=== PATIENT | male | born 1950 | race Caucasian/White ===

== ENCOUNTER → 2017-12-16 | Outpatient (CLI) | payer MEDICARE, OTHER ==
[~2017-12-16] MED LIST: ALL300 PO; ALLO-119 PO; ALLOPURINOL PO; AMOX-559 PO; ATOR10TA24 PO; ATOR40TA69 PO; BACL-1 PO; BENZ200C15 PO; CHOL10005 PO; DIPH0.5D12 IM; FLOMAX PO; FLUT16SP19 NS; GLUC-198 PO; GUAI120L3 PO; KET10 PO; MAXALT PO; MOMR NS; ONDA4TAB PO; PER PO; PNEU0.5D3 IM; PRED20TA6 PO; RIZA10TA PO; SAW450CA3 PO; VIT1CAPS9 PO
--- NOTE | 2017-12-16 10:14 | RADIOLOGY IMAGING REPORT ---
FACILITY: [facility] - [place] PATIENT NAME: Jose Vides : 1950 MR: [id number] V: [id number] EXAM DATE: ORDERING PHYSICIAN: SHIRAZ NOVOA TECHNOLOGIST: Location: [facility] [place] Patient: Jose Vides : 1950 Visit/Account:[id number] Date of Sevice: 12/16/2017 AORTA INDICATION: Aortic aneurysm screening, history of tobacco use. COMPARISON: None available FINDINGS: The suprarenal aorta measures 2.4 x 2.6 cm. The superior infrarenal aorta measures 2 x 2.1 cm. The mid infrarenal aorta is normal in size to 1.6 cm. The distal aorta measures 1.6 x 1.6 cm. The right and left common iliac arteries both measure 1 cm. IMPRESSION: Normal abdominal aorta without aneurysm. Report Dictated By: Jaison Zavala MD at 12/16/2017 9:52 AM Report E-Signed By: Jaison Zavala MD at 12/16/2017 10:09 AM WSN:[email or web address]
== END ==
LOC: US 07:16
PROVIDERS: ATTEND Emergency Medicine
DX: Z87.891 Personal history of nicotine dependence (principal)
CPT/HCPCS: 93979

== ENCOUNTER → 2018-01-06 | Outpatient (CLI) | payer MEDICARE, OTHER ==
[2018-01-06 08:00] LABS: PLATELET COUNT, AUTOMATED 214 K/uL (150-450)
[2018-01-06 08:48] LABS: LDL CHOLESTEROL 63 mg/dl
== END ==
LOC: LAB 07:27
PROVIDERS: ATTEND Emergency Medicine
DX: E78.5 Hyperlipidemia, unspecified (principal); E87.5 Hyperkalemia; G62.9 Polyneuropathy, unspecified
CPT/HCPCS: 36415; 82310; 82374; 82435; 82465; 82565; 82607; 82947; 83718; 84132; 84295; 84478; 84520; 85025

== ENCOUNTER → 2018-08-14 | Outpatient (CLI) | payer MEDICARE, OTHER ==
[~2018-08-14] MED LIST changes: -DIPH0.5D12 IM; +DIPH0.5S2 IM; +FLU180SY11 IM; +GLUC1TAB78; +MAGN125C; +VIT1CAPS34 PO; +[UNRECOGNIZED DRUG - OTHER] PO
[2018-08-14 08:02] LABS: PLATELET COUNT, AUTOMATED 210 K/uL (150-450)
[2018-08-14 08:20] LABS: LDL CHOLESTEROL 78 mg/dl
== END ==
LOC: LAB 07:50
PROVIDERS: ATTEND Emergency Medicine
DX: Z12.5 Encounter for screening for malignant neoplasm of prostate (principal); G47.33 Obstructive sleep apnea (adult) (pediatric); E78.5 Hyperlipidemia, unspecified
CPT/HCPCS: 36415; 85025; G0103; 82040; 82247; 82310; 82374; 82435; 82465; 82565; 82947; 83718; 84075; 84132; 84153; 84155; 84295; 84450; 84460; 84478; 84520

== ENCOUNTER → 2018-08-19 | Outpatient (CLI) | payer MEDICARE, OTHER | LOC: LAB 09:10 | PROVIDERS: ATTEND Emergency Medicine | DX: R94.5 Abnormal results of liver function studies (principal); Z72.9 Problem related to lifestyle, unspecified | CPT/HCPCS: 36415; 86706; 86707; 87340; 87350; G0472; 86803 ==

== ENCOUNTER → 2018-08-25 | Outpatient (CLI) | payer MEDICARE, OTHER ==
--- NOTE | 2018-08-25 13:48 | RADIOLOGY IMAGING REPORT ---
FACILITY: [facility] PATIENT NAME: Jose Vides : 1950 MR: [id number] V: [id number] EXAM DATE: ORDERING PHYSICIAN: SHIRAZ NOVOA TECHNOLOGIST: Location: [facility] Patient: Jose Vides : 1950 Visit/Account:[id number] Date of Sevice: 08/25/2018 LIVER HISTORY: Elevated liver US. COMPARISON: None. FINDINGS: Gallbladder: Surgically absent Liver: Negative. Common duct: Normal, 5.4 mm diameter. Pancreas: Partially obscured by bowel, visualized aspects unremarkable. Right kidney: Right kidney measures 9 cm in length. There is an 8 mm echogenic round focus in the up per pole and a 7 mm echogenic focus in the mid to lower pole the right kidney which appear to represe nt calcifications Upper abdominal aorta and IVC: Patent. Ascites: None visualized. IMPRESSION: Two calcifications in the right kidney as described. No evidence of hydronephrosis Postsurgical changes from a cholecystectomy The liver appears unremarkable Report Dictated By: Becca Spicer MD at 08/25/2018 1:41 PM Report E-Signed By: Becca Spicer MD at 08/25/2018 1:44 PM WSN:[email or web address]
== END ==
LOC: US 01:09
PROVIDERS: ATTEND Emergency Medicine
DX: R74.8 Abnormal levels of other serum enzymes (principal); Z90.49 Acquired absence of other specified parts of digestive tract
CPT/HCPCS: 76705

== ENCOUNTER → 2018-09-05 | Outpatient (CLI) | payer MEDICARE, OTHER ==
[~2018-09-05] MED LIST changes: +UBID50TA3 PO
[2018-09-05 08:36] LABS: PLATELET COUNT, AUTOMATED 213 K/uL (150-450)
== END ==
LOC: LAB 08:09
PROVIDERS: ATTEND Surgery
DX: G47.33 Obstructive sleep apnea (adult) (pediatric) (principal)
CPT/HCPCS: 36415; 85025

== ENCOUNTER → 2018-09-12 | Day surgery (SDC) | payer MEDICARE, OTHER ==
[~2018-09-12] VITALS: Ht 172.7 cm; Wt 78.9 kg
[2018-09-12] VITALS (7 sets, daily range): BP systolic 105–140; BP diastolic 65–86
[~2018-09-12] MED LIST changes: +LIDOCAINE MPF 1% 5 ML VIAL ONE; +LIDOCAINE/SOD BICARB 8.4% SYR ID ONE; +NORMOSOL R SOLN(*) 1000 ML BAG 1,000 ML IV PRN; +PROPOFOL EMUL(*) 10MG/ML 20 ML 60 ML ONE
--- NOTE | 2018-09-12 11:44 | Short(Outpt) Discharge Summary ---
Discharge Summary Reason for Hosp/Final Diag: (1) Encounter for screening colonoscopy Hospital Course & Plan: pt presented for screening colonoscopy. he tolerated the procedure well and will be discharged home when criteria met. Discharge Instructions Home Meds Active Scripts Allopurinol (ZYLOPRIM) 300 Mg Tablet, 300 MG PO QAM, #90 TAB 3 Refills Prov:SHIRAZ NOVOA MD 08/19/18 Atorvastatin Calcium (ATORVASTATIN CALCIUM) 40 Mg Tablet, 1 TAB PO QDAY, #90 TAB 3 Refills Prov:SHIRAZ NOVOA MD 08/19/18 Rizatriptan Benzoate (MAXALT) 10 Mg Tablet, 1 TAB PO PRN PRN for MIGRAINE, #15 TAB 3 Refills Prov:SHIRAZ NOVOA MD 12/12/17 Reported Medications Ubidecarenone (COQ10) 50 Mg Tab.chew, 100 MG PO DAILY, TAB.CHEW 09/05/18 Magnesium Citrate (Magnesium Citrate) 125 Mg Capsule 08/13/18 Glucosamine/D3/Boswellia Anne-Marie (Osteo Bi-Flex Tablet) 1,500 Mg-400 Unit-100 Mg Tablet 08/13/18 M-17/Nettle/Pumpk/Saw Palmet (PROSTATE THERAPY SOFTGEL) 1 Each Capsule, 1 EACH PO, CAPSULE 08/13/18 Cholecalciferol (Vitamin D3) (VITAMIN D3) Unknown Strength Tablet, PO, TAB 09/05/16 Vit C/E/Zn/Coppr/Lutein/Zeaxan (Preservision Areds 2 Softgel) 1 Each Capsule, 1 CAP PO DAILY 09/05/16 Discontinued Reported Medications Vit A/Vit C/Vit E/Zinc/Copper (PRESERVISION AREDS SOFTGEL) 1 Each Capsule, 1 EACH PO, CAPSULE 08/13/18 Diet: Regular Activity: As Tolerated Special Instructions: repeat colonoscopy in 10 yrs JEFF CRUZ Sep 12, 2018 11:44
== END ==
LOC: OR 00:18
PROVIDERS: ATTEND Surgery
DX: Z12.11 Encounter for screening for malignant neoplasm of colon (principal); K57.30 Diverticulosis of large intestine without perforation or abscess without bleeding
CPT/HCPCS: 00812; G0121; J2001; J2704